=== PATIENT | male | born 1980 | race Caucasian/White ===

== ENCOUNTER → 2019-08-13 | Outpatient (CLI) | payer OTHER ==
[~2019-08-13] VITALS: Ht 180.3 cm; Wt 104.5 kg
[~2019-08-13] MED LIST: GADOBUTROL 7.5 MMOL/7.5 ML (GADAVIST) VIAL IV ONE; IOHEXOL 300 MG/ML 50 ML (OMNIPAQUE 300) VIAL IV ONE
--- NOTE | 2019-08-13 14:16 | Diagnostic Imaging Report ---
INDICATION: Right shoulder injury and pain. TECHNIQUE: The patient was brought to the procedure room and placed on the table in the supine position. The skin of the right shoulder was prepped and draped in the usual sterile fashion. A small amount of 1% lidocaine was utilized for local anesthesia. A 21-gauge needle was advanced into the right shoulder at the rotator interval. A 15 mL solution of iodinated contrast, normal saline, and gadolinium was injected under fluoroscopic observation. The needle was withdrawn and hemostasis was obtained. A total of 15 seconds of fluoroscopic time was utilized. The patient tolerated the procedure well and was sent to MRI in satisfactory condition. IMPRESSION: Successful right shoulder injection of gadolinium contrast solution using fluoroscopy. Dictated by: Dictated on workstation # [id number]
--- NOTE | 2019-08-13 15:17 | Diagnostic Imaging Report ---
PROCEDURE: MRI upper extremity any joint with contrast right. TECHNIQUE: Multiplanar, multisequence intra-articular contrast-enhanced MRI of the right shoulder was accomplished. INDICATION: Right shoulder injury. COMPARISON: None. FINDINGS: No acute fracture is seen in the right shoulder. Alignment appears normal. There is contrast in the right shoulder joint. There is a full-thickness tear of the anterior supraspinatus tendon which measures approximately 1.5 cm in width, with 9 mm of retraction. There is additional thinning and low-grade partial-thickness tearing of the posterior supraspinatus tendon and the infraspinatus tendon. The teres minor tendon is intact. The subscapularis tendon appears intact. The long head of the biceps tendon appears normal in course and signal. The glenoid labrum demonstrates mild fraying superiorly, and a sub-labral foramen at the anterior superior aspect. No displaced labral tear is seen. No para labral cyst is seen. The acromion has a slightly curved undersurface without hooking. There is mild degenerative change in the right acromioclavicular joint. The coracoclavicular and coracoacromial ligaments appear intact. The soft tissues about the right shoulder demonstrate no acute abnormality. IMPRESSION: 1. Moderate-sized full-thickness tear of the right rotator cuff with additional low-grade partial-thickness tearing. 2. Fraying of the right glenoid labrum without displacement. Dictated by: Dictated on workstation # [id number]
== END ==
LOC: RAD 12:44
PROVIDERS: ATTEND Nurse Practitioner Family
DX: S46.001A Unspecified injury of muscle(s) and tendon(s) of the rotator cuff of right shoulder, initial encounter (principal); X58.XXXA Exposure to other specified factors, initial encounter
CPT/HCPCS: 23350; 73040; 73222